=== PATIENT | female | born 1985 | race Caucasian/White ===

== ENCOUNTER 2018-12-07 00:23 | Emergency (ER) | payer SELFPAY ==
[~2018-12-07] VITALS: Ht 162.6 cm; Wt 54.4 kg
--- NOTE | 2018-12-07 01:09 | NUR ---
CALLED ENEIDA WITH [facility]; ETA 1 HOUR
--- NOTE | 2018-12-07 02:41 | NUR ---
CALLED ENEIDA HENAO, ETA 0315 AM; PT UPDATED; DENIES ANY NEEDS OR CONCERNS AT THIS TIME; FAMILY AT BS
--- NOTE | 2018-12-07 02:54 | NUR ---
[facility]
[2018-12-07] MEDS ORDERED: CEFTRIAXONE SOD 250 MG VIAL IM ONE (04:45)
[2018-12-07] MEDS ORDERED: AZITHROMYCIN 250 MG TAB PO ONE (04:45)
[2018-12-07] MEDS ORDERED: METRONIDAZOLE 500 MG TAB PO ONE ×2 (04:45→05:00)
[2018-12-07] MEDS ORDERED: ONDANSETRON HCL 4 MG ORAL DISINTEGRATING TAB PO ONE (04:45)
[2018-12-07] MEDS ORDERED: LIDOCAINE HCL 1% LOCAL INJ 20 ML VIAL ONE (04:59)
[2018-12-07] MEDS ORDERED: METRONIDAZOLE 500 MG TAB ONE (04:59)
[2018-12-07 05:00] LABS: BILIRUBIN,URINE NEGATIVE (NEGATIVE); CLARITY,URINE SL CLOUDY (CLEAR); COLOR,URINE YELLOW (YELLOW); KETONES,URINE TRACE (NEGATIVE); LEUKOCYTE ESTERASE ,URINE NEGATIVE (NEGATIVE); NITRITE,URINE NEGATIVE (NEGATIVE); PROTEIN,URINE DIPSTICK TRACE (NEGATIVE); URINE UROBILINOGEN 1 mg/dL (0.2 - 1)
[2018-12-07] MEDS ORDERED: ONDANSETRON HCL 4 MG ORAL DISINTEGRATING TAB ONE (05:00)
[2018-12-07 05:05] LABS: PREGNANCY TEST, URINE NEGATIVE (NEGATIVE)
[2018-12-07 05:10] LABS: BACTERIA,URINE FEW /HPF; EPITHELIAL CELLS,URINE FEW /LPF; MUCUS,URINE MODERATE (RARE); RBC,URINE 0-5 /HPF (0-5); WBC,URINE (MAN) 0-5 /HPF (0-5)
--- NOTE | 2018-12-07 05:17 | NUR ---
pt administered plan b by [facility] HAMMONDS, Olga
[2018-12-07 05:18] VITALS: BP 122/76
== END 2018-12-07 05:45 | disposition home or self-care (01) ==
LOC: ER 00:23
DX: T76.21XA Adult sexual abuse, suspected, initial encounter (principal)
CPT/HCPCS: 81001; 81025; 99282; J0696; J2001; Q0162